=== PATIENT | female | born 1960 | race African-American/Black ===

== ENCOUNTER 2018-04-28 21:34 | Inpatient (IN) | payer SELFPAY ==
[~2018-04-28] VITALS: Ht 170.2 cm; Wt 70.3 kg
[2018-04-28] MEDS ORDERED: IPRATROPIUM BROMIDE (0.02%) 0.5MG/2.5ML NEB HHN STA (22:52)
[2018-04-28] MEDS ORDERED: SODIUM CHLORIDE 0.9% 1,000 ML IV ONE (22:52)
[2018-04-28] MEDS ORDERED: ALBUTEROL (0.083%) 2.5MG/3ML NEB HHN STA (22:52)
[2018-04-28] MEDS ORDERED: GUAIFENESIN/CODEINE 200-20MG/10ML UDC PO ONE (23:00)
[2018-04-28] MEDS ORDERED: GUAIFENESIN/CODEINE 100-10MG/5ML UDC PO NR (23:15)
[2018-04-28 23:38] LABS: BASOPHILS % 0.4 % (0.0-2.0); LYMPHOCYTES % 8.1 % (20.0-50.0); MEAN CORPUSCULAR HEMOGLOBIN 25.8 pg (28.0-32.0); MEAN CORPUSCULAR VOLUME 85.3 fL (81.0-99.0); MEAN PLATELET VOLUME 7.3 fl (7.4-10.4); MONOCYTES % 12.1 % (2.0-8.0); NEUTROPHILS % 79.4 % (40.0-76.0); PLATELET 203 x1000/uL (130-400); RED BLOOD CELL COUNT 2.58 mill/uL (4.2-5.4); RED CELL DISTRIBUTION WIDTH 17.1 % (11.6-14.6)
[2018-04-28 23:48] LABS: HEMOGLOBIN. 6.7 g/dL (12.0-16.0)
[2018-04-28 23:51] LABS: CHLORIDE 101 mEq/L (98-107)
[2018-04-29] MEDS ORDERED: PANTOPRAZOLE SODIUM 40 MG/VIAL IV STA (02:08)
[2018-04-29] MEDS ORDERED: SODIUM CHLORIDE 0.9% 1,000 ML IV ONE (02:08)
[2018-04-29 03:44] LABS: PARTIAL THROMBOPLASTIN TIME 29.1 sec (23.4-31.0); PROTHROMBIN TIME 10.3 sec (9.1-11.1)
[2018-04-29] MEDS ORDERED: ACETAMINOPHEN 325MG TABLET PO ONE (04:45)
[2018-04-29] MEDS ORDERED: DIPHENHYDRAMINE 50MG/ML VIAL IV ONE (04:45)
[2018-04-29] MEDS ORDERED: CLONIDINE 0.1MG TABLET PO PRN (07:00)
[2018-04-29] MEDS ORDERED: MAGNESIUM/ALUMINUM HYDROXIDE/SIMETHICONE 30ML UDC PO PRN (07:00)
[2018-04-29] MEDS ORDERED: HYDRALAZINE 20MG/ML VIAL IV PRN (07:00)
[2018-04-29] MEDS ORDERED: DIPHENHYDRAMINE 50MG/ML VIAL IV PRN (07:00)
[2018-04-29] MEDS ORDERED: IPRATROPIUM/ALBUTEROL 0.5-3(2.5)MG/3ML NEB INH PRN (07:00)
[2018-04-29] MEDS ORDERED: LORAZEPAM 2MG/ML CPJ IV PRN (07:00)
[2018-04-29] MEDS ORDERED: DOCUSATE SODIUM 100MG CAPSULE PO PRN (07:00)
[2018-04-29] MEDS ORDERED: HYDROMORPHONE HCL/PF 2MG/ML CPJ IV PRN (07:00)
[2018-04-29] MEDS ORDERED: ONDANSETRON HCL 4MG/2ML INJ IV PRN (07:00)
[2018-04-29] MEDS ORDERED: ACETAMINOPHEN 325MG TABLET PO PRN (07:00)
[2018-04-29] MEDS ORDERED: HYDROCODONE/ACETAMINOPHEN 10/325MG TABLET PO PRN (07:00)
[2018-04-29 08:12] LABS: BASOPHILS % 0.2 % (0.0-2.0); HEMATOCRIT. 24.1 % (36.0-48.0); HEMOGLOBIN. 7.6 g/dL (12.0-16.0); LYMPHOCYTES % 11.4 % (20.0-50.0); MEAN CORPUSCULAR HEMOGLOBIN 26.8 pg (28.0-32.0); MEAN CORPUSCULAR VOLUME 85.3 fL (81.0-99.0); MEAN PLATELET VOLUME 6.9 fl (7.4-10.4); MONOCYTES % 14.3 % (2.0-8.0); NEUTROPHILS % 74.1 % (40.0-76.0); PLATELET 163 x1000/uL (130-400); RED BLOOD CELL COUNT 2.82 mill/uL (4.2-5.4); RED CELL DISTRIBUTION WIDTH 16.2 % (11.6-14.6)
[2018-04-29] MEDS ORDERED: IOHEXOL-350 100 ML BOTTLE ONE (09:06)
[2018-04-29 10:00] VITALS: BP_SYST 134; BP_SYST 148; BP_DIAS 69; BP_DIAS 78
[2018-04-29] MEDS: GUAIFENESIN 200MG/10ML SUGAR FREE UDC PO PRN ×2 (10:51→20:15)
[2018-04-29] MEDS: DEXT 5%/0.45% NACL 1000ML 1,000 ML IV SCH (13:16)
[2018-04-29] MEDS: SODIUM CHLORIDE 0.9% INJ 3ML FLUSH IVF SCH ×2 (14:00→22:48)
[2018-04-29] MEDS ORDERED: CEFTRIAXONE 1 G PREMIX 50 ML IV SCH (14:15)
[2018-04-29] MEDS ORDERED: CEFTRIAXONE 1,000 MG in DEXTROSE 5% WATER 50 ML IV SCH (16:00)
[2018-04-29] MEDS ORDERED: AZITHROMYCIN 500 MG in DEXT 5% WATER 250 ML IV SCH (16:00)
[2018-04-29] MEDS: GUAIFENESIN 600MG ER TABLET PO SCH ×2 (16:23→20:11)
[2018-04-29 20:00] VITALS: BP 134/76
[2018-04-29] MEDS: BUDESONIDE 0.5MG/2ML NEB HHN SCH (20:58)
[2018-04-29] MEDS: IPRATROPIUM/ALBUTEROL 0.5-3(2.5)MG/3ML NEB HHN SCH (20:58)
[2018-04-29 22:00] VITALS: BP 132/68
[2018-04-30] VITALS (7 sets, daily range): BP systolic 103–133; BP diastolic 57–71
[2018-04-30 00:15] LABS: CREATINE KINASE MB FRACTION 1.6 ng/mL (0.5-3.6)
[2018-04-30] MEDS: SODIUM CHLORIDE 0.9% INJ 3ML FLUSH IVF SCH (05:33)
[2018-04-30] MEDS: DEXT 5%/0.45% NACL 1000ML 1,000 ML IV SCH (05:33)
[2018-04-30 06:42] LABS: BASOPHILS % 0.3 % (0.0-2.0); EOSINOPHILS % 0.1 % (0.0-5.0); HEMATOCRIT. 23.7 % (36.0-48.0); HEMOGLOBIN. 7.7 g/dL (12.0-16.0); LYMPHOCYTES % 23.5 % (20.0-50.0); MEAN CORPUSCULAR VOLUME 83.3 fL (81.0-99.0); MEAN PLATELET VOLUME 7.3 fl (7.4-10.4); MONOCYTES % 14.9 % (2.0-8.0); NEUTROPHILS % 61.2 % (40.0-76.0); PLATELET 168 x1000/uL (130-400); RED BLOOD CELL COUNT 2.84 mill/uL (4.2-5.4); RED CELL DISTRIBUTION WIDTH 16.5 % (11.6-14.6)
[2018-04-30 06:58] LABS: CHLORIDE 108 mEq/L (98-107)
[2018-04-30 07:36] LABS: T4 FREE 1.09 ng/dL (0.76-1.46)
[2018-04-30] MEDS: GUAIFENESIN 600MG ER TABLET PO SCH (08:23)
[2018-04-30] MEDS: GUAIFENESIN 200MG/10ML SUGAR FREE UDC PO PRN (08:23)
[2018-04-30] MEDS: BUDESONIDE 0.5MG/2ML NEB HHN SCH (09:09)
[2018-04-30] MEDS: IPRATROPIUM/ALBUTEROL 0.5-3(2.5)MG/3ML NEB HHN SCH (09:10)
[2018-04-30] MEDS ORDERED: PANTOPRAZOLE SODIUM 40 MG/VIAL IV SCH (11:30)
== END 2018-04-30 12:30 | disposition left against medical advice (07) | DRG 254 ==
LOC: ER 22:19 → 3WST 04-29 03:31 → EDBEDREQ 04-29 03:33 → EDBEDREQSVC 04-29 03:33 → EDBEDREQTM 04-29 03:33 → ENRESERV 04-29 07:19
PROVIDERS: ADMIT Internal Medicine; ATTEND Internal Medicine
PROC: 30233N1 Transfusion of Nonautologous Red Blood Cells into Peripheral Vein, Percutaneous Approach (ICD-10-PCS; principal; 2018-04-29)
DX: K92.1 Melena (principal); J96.00 Acute respiratory failure, unspecified whether with hypoxia or hypercapnia; J44.1 Chronic obstructive pulmonary disease with (acute) exacerbation; D50.9 Iron deficiency anemia, unspecified; E78.5 Hyperlipidemia, unspecified; F10.20 Alcohol dependence, uncomplicated; E86.0 Dehydration; F17.210 Nicotine dependence, cigarettes, uncomplicated; I10 Essential (primary) hypertension; K59.00 Constipation, unspecified; K30 Functional dyspepsia; F41.9 Anxiety disorder, unspecified; Z53.21 Procedure and treatment not carried out due to patient leaving prior to being seen by health care provider
CPT/HCPCS: 36415; 36430; 71045; 71275; 82550; 82553; 82962; 83880; 84439; 84443; 84484; 86850; 86900; 86920; 87804; 93005; 94640; 96361; 96365; 96366; 99291; C9113; J0456; J0696; J1200; J7030; J7040; J7060; J7611; J7620; J7626; P9016; Q9967

== ENCOUNTER 2018-05-27 19:31 | Inpatient (IN) | payer SELFPAY ==
[~2018-05-27] VITALS: Ht 170.2 cm; Wt 61.4 kg
[2018-05-27 21:45] LABS: CHLORIDE 106 mEq/L (98-107)
[2018-05-27 21:48] LABS: BASOPHILS % 0.7 % (0.0-2.0); LYMPHOCYTES % 14.4 % (20.0-50.0); MEAN CORPUSCULAR HEMOGLOBIN 28.9 pg (28.0-32.0); MEAN PLATELET VOLUME 8.2 fl (7.4-10.4); MONOCYTES % 12.5 % (2.0-8.0); NEUTROPHILS % 72.4 % (40.0-76.0); PLATELET 111 x1000/uL (130-400); RED BLOOD CELL COUNT 2.15 mill/uL (4.2-5.4); RED CELL DISTRIBUTION WIDTH 25.4 % (11.6-14.6)
[2018-05-27 21:49] LABS: INR 1.2; PARTIAL THROMBOPLASTIN TIME 26.8 sec (23.4-31.0); PROTHROMBIN TIME 12.2 sec (9.6-11.0)
[2018-05-27 21:50] LABS: HEMATOCRIT. 20.4 % (36.0-48.0); HEMOGLOBIN. 6.2 g/dL (12.0-16.0)
[2018-05-27 22:01] LABS: PLATELET ESTIMATE DECREASED
[2018-05-27] MEDS ORDERED: ONDANSETRON HCL 4MG/2ML INJ IV ONE (22:15)
[2018-05-27] MEDS ORDERED: PANTOPRAZOLE SODIUM 40 MG/VIAL IV ONE (22:30)
[2018-05-27] MEDS ORDERED: MAGNESIUM/ALUMINUM HYDROXIDE/SIMETHICONE 30ML UDC PO PRN (23:00)
[2018-05-27] MEDS ORDERED: CLONIDINE 0.1MG TABLET PO PRN (23:00)
[2018-05-27] MEDS ORDERED: IPRATROPIUM/ALBUTEROL 0.5-3(2.5)MG/3ML NEB INH PRN (23:00)
[2018-05-27] MEDS ORDERED: GUAIFENESIN 200MG/10ML SUGAR FREE UDC PO PRN (23:00)
[2018-05-27] MEDS ORDERED: DOCUSATE SODIUM 100MG CAPSULE PO PRN (23:00)
[2018-05-27] MEDS ORDERED: ONDANSETRON HCL 4MG/2ML INJ IV PRN (23:00)
[2018-05-27] MEDS ORDERED: LORAZEPAM 2MG/ML CPJ IV PRN (23:00)
[2018-05-27] MEDS ORDERED: ACETAMINOPHEN 325MG TABLET PO PRN (23:00)
[2018-05-27] MEDS ORDERED: NITROGLYCERIN 0.4MG TABLET SL SL PRN (23:00)
[2018-05-27] MEDS ORDERED: ZOLPIDEM TARTRATE 5MG TABLET PO PRN (23:15)
[2018-05-28] VITALS (12 sets, daily range): BP systolic 128–161; BP diastolic 47–92
[2018-05-28 00:06] LABS: ETHANOL BLOOD 55 mg/dL
[2018-05-28 00:08] LABS: TOTAL IRON BINDING CAPACITY 374 ug/dL (250-450)
[2018-05-28 01:20] LABS: FOLIC ACID (FOLATE) SERUM 3.7 ng/mL (>5.38)
[2018-05-28] MEDS: DILTIAZEM HCL 60MG TABLET PO SCH ×3 (02:46→18:13)
[2018-05-28] MEDS ORDERED: PANTOPRAZOLE 80 MG in SODIUM CHLORIDE 0.9% 100 ML IV SCH (04:00)
[2018-05-28] MEDS: PANTOPRAZOLE 80 MG in SODIUM CHLORIDE 0.9% 100 ML IV SCH ×2 (04:02→14:00)
[2018-05-28 06:45] LABS: *BENZODIAZEPINES SCREEN URINE NEGATIVE (NEGATIVE); *COCAINE SCREEN URINE NEGATIVE (NEGATIVE)
[2018-05-28 06:46] LABS: *AMPHETAMINES SCREEN URINE NEGATIVE (NEGATIVE); *BARBITURATES SCREEN URINE NEGATIVE (NEGATIVE); CANNABINOID URINE SCREEN NEGATIVE (NEGATIVE); METHADONE URINE SCREEN NEGATIVE (NEGATIVE); OPIATES URINE SCREEN NEGATIVE (NEGATIVE); PHENCYCLIDINE URINE SCREEN NEGATIVE (NEGATIVE)
[2018-05-28 10:25] LABS: HEMATOCRIT. 21.5 % (36.0-48.0); MEAN CORPUSCULAR HEMOGLOBIN 28.2 pg (28.0-32.0); MEAN CORPUSCULAR VOLUME 89.9 fL (81.0-99.0); MEAN PLATELET VOLUME 7.1 fl (7.4-10.4); PLATELET 104 x1000/uL (130-400); RED CELL DISTRIBUTION WIDTH 22.3 % (11.6-14.6)
[2018-05-28 10:36] LABS: HEMOGLOBIN. 6.8 g/dL (12.0-16.0)
[2018-05-28] MEDS: DEXT 5%/0.45% NACL 1000ML 1,000 ML IV SCH (11:01)
[2018-05-28] MEDS ORDERED: BARIUM SULFATE(VOLUMEN) 450 ML ORAL.SUSP ONE (12:31)
[2018-05-28 12:40] LABS: CHLORIDE 108 mEq/L (98-107)
[2018-05-28 13:54] LABS: PLATELET ESTIMATE SLIGHTLY DECREASED
[2018-05-28] MEDS ORDERED: MVI, ADULT NO.1 10 ML, FOLIC ACID 1 MG, THIAMINE HCL 100 MG in SODIUM CHLORIDE 0.9% 1,0... IV ONE ×4 (14:00)
[2018-05-28] MEDS ORDERED: IOHEXOL-350 100 ML BOTTLE ONE (14:29)
[2018-05-28] MEDS ORDERED: BISACODYL 5MG TABLET PO PRN (15:00)
[2018-05-28] MEDS ORDERED: METOCLOPRAMIDE HCL 10MG TABLET PO SCH (15:00)
[2018-05-28] MEDS ORDERED: SORBITOL 70% SOLN 30ML PO SCH ×2 (16:00→20:00)
[2018-05-28] MEDS ORDERED: METOCLOPRAMIDE 10MG/10 ML UDC PO SCH (19:00)
[2018-05-28] MEDS ORDERED: BISACODYL 5MG TABLET PO SCH (19:00)
[2018-05-28 21:47] LABS: HEMATOCRIT 28.1 % (36.0-48.0); HEMOGLOBIN 9.3 g/dL (12.0-16.0)
[2018-05-29] VITALS: BP 148/87
[2018-05-29] MEDS: DILTIAZEM HCL 60MG TABLET PO SCH ×4 (00:25→17:04)
[2018-05-29] MEDS: PANTOPRAZOLE 80 MG in SODIUM CHLORIDE 0.9% 100 ML IV SCH ×2 (00:25→10:00)
[2018-05-29] MEDS: DEXT 5%/0.45% NACL 1000ML 1,000 ML IV SCH ×4 (00:26→17:55)
[2018-05-29 04:00] VITALS: BP 133/66
[2018-05-29 05:57] LABS: INR 1.2; PARTIAL THROMBOPLASTIN TIME 26.1 sec (23.4-31.0)
[2018-05-29 06:04] LABS: CHLORIDE 113 mEq/L (98-107)
[2018-05-29 06:15] LABS: HEMATOCRIT 24.9 % (36.0-48.0); HEMOGLOBIN 8.4 g/dL (12.0-16.0); MEAN CORPUSCULAR VOLUME 88.5 fL (81.0-99.0); PLATELET 108 x1000/uL (130-400); RED BLOOD CELL COUNT 2.82 mill/uL (4.2-5.4); RED CELL DISTRIBUTION WIDTH 20.3 % (11.6-14.6)
[2018-05-29 08:00] VITALS: BP 124/67
[2018-05-29] MEDS: FOLIC ACID 1MG TABLET PO SCH (08:32)
[2018-05-29] MEDS ORDERED: FENTANYL CITRATE/PF 50MCG/ML 2ML VIAL ONE ×2 (11:24→12:24)
[2018-05-29] MEDS ORDERED: MIDAZOLAM HCL 5 MG/5 ML VIAL ONE (11:24)
[2018-05-29] MEDS ORDERED: MIDAZOLAM HCL 5 MG/5 ML VIAL IV ONE (11:46)
[2018-05-29] MEDS ORDERED: FENTANYL CITRATE/PF 50MCG/ML 2ML VIAL IV ONE (11:48)
[2018-05-29] MEDS ORDERED: DIPHENHYDRAMINE 50MG/ML VIAL ONE ×3 (11:53→12:21)
[2018-05-29] MEDS ORDERED: DIPHENHYDRAMINE 50MG/ML VIAL IV ONE (11:54)
[2018-05-29 13:24] VITALS: BP 127/64
[2018-05-29] MEDS: PANTOPRAZOLE SODIUM 40 MG/VIAL IV SCH (13:41)
[2018-05-29 16:00] VITALS: BP 118/65
[2018-05-29] MEDS: SUCRALFATE 1 G/10 ML UDC PO SCH ×2 (17:04→21:22)
[2018-05-29 20:00] VITALS: BP 121/68
[2018-05-29 20:09] LABS: BASOPHILS % 0.2 % (0.0-2.0); EOSINOPHILS % 0.4 % (0.0-5.0); HEMATOCRIT. 27.8 % (36.0-48.0); HEMOGLOBIN. 9.4 g/dL (12.0-16.0); LYMPHOCYTES % 21.1 % (20.0-50.0); MEAN CORPUSCULAR HEMOGLOBIN 30.1 pg (28.0-32.0); MEAN CORPUSCULAR VOLUME 88.9 fL (81.0-99.0); MEAN PLATELET VOLUME 7.4 fl (7.4-10.4); MONOCYTES % 12.6 % (2.0-8.0); NEUTROPHILS % 65.7 % (40.0-76.0); PLATELET 125 x1000/uL (130-400); RED BLOOD CELL COUNT 3.13 mill/uL (4.2-5.4); RED CELL DISTRIBUTION WIDTH 20.8 % (11.6-14.6)
[2018-05-30] VITALS: BP 116/62
[2018-05-30] MEDS: DILTIAZEM HCL 60MG TABLET PO SCH ×3 (00:30→12:38)
[2018-05-30 03:58] VITALS: BP 122/66
[2018-05-30] MEDS: DEXT 5%/0.45% NACL 1000ML 1,000 ML IV SCH (05:05)
[2018-05-30 06:58] LABS: BASOPHILS % 0.2 % (0.0-2.0); EOSINOPHILS % 0.6 % (0.0-5.0); HEMOGLOBIN. 7.8 g/dL (12.0-16.0); LYMPHOCYTES % 23.7 % (20.0-50.0); MEAN CORPUSCULAR VOLUME 88.8 fL (81.0-99.0); MEAN PLATELET VOLUME 7.6 fl (7.4-10.4); MONOCYTES % 11.9 % (2.0-8.0); NEUTROPHILS % 63.6 % (40.0-76.0); PLATELET 113 x1000/uL (130-400); RED BLOOD CELL COUNT 2.59 mill/uL (4.2-5.4); RED CELL DISTRIBUTION WIDTH 20.6 % (11.6-14.6)
[2018-05-30 07:46] LABS: CHLORIDE 111 mEq/L (98-107)
[2018-05-30 08:00] VITALS: BP 136/61
[2018-05-30] MEDS: SUCRALFATE 1 G/10 ML UDC PO SCH ×2 (09:31→12:38)
[2018-05-30] MEDS: PANTOPRAZOLE SODIUM 40 MG/VIAL IV SCH (09:32)
[2018-05-30] MEDS: FOLIC ACID 1MG TABLET PO SCH (09:32)
[2018-05-30] MEDS ORDERED: POTASSIUM CHLORIDE 20MEQ TABLET SR PO SCH (11:00)
[2018-05-30 11:36] VITALS: BP 130/64
[2018-05-30 12:07] VITALS: BP 133/67
== END 2018-05-30 14:15 | disposition home or self-care (01) | DRG 241 ==
LOC: ER 19:31 → 6WST 22:39 → ENRESERV 23:23
PROVIDERS: ADMIT Internal Medicine; ATTEND Internal Medicine
PROC: 30233N1 Transfusion of Nonautologous Red Blood Cells into Peripheral Vein, Percutaneous Approach (ICD-10-PCS; 2018-05-28)
PROC: 0DJD8ZZ Inspection of Lower Intestinal Tract, Via Natural or Artificial Opening Endoscopic (ICD-10-PCS; 2018-05-29)
PROC: 0DB98ZX Excision of Duodenum, Via Natural or Artificial Opening Endoscopic, Diagnostic (ICD-10-PCS; principal; 2018-05-30)
PROC: 0DB68ZX Excision of Stomach, Via Natural or Artificial Opening Endoscopic, Diagnostic (ICD-10-PCS; 2018-05-30)
DX: K29.71 Gastritis, unspecified, with bleeding (principal); E46 Unspecified protein-calorie malnutrition; D52.9 Folate deficiency anemia, unspecified; D62 Acute posthemorrhagic anemia; E83.51 Hypocalcemia; I78.1 Nevus, non-neoplastic; K20.9 Esophagitis, unspecified; E87.6 Hypokalemia; F10.10 Alcohol abuse, uncomplicated; I10 Essential (primary) hypertension; J44.9 Chronic obstructive pulmonary disease, unspecified; K59.00 Constipation, unspecified; Z82.49 Family history of ischemic heart disease and other diseases of the circulatory system; Z87.891 Personal history of nicotine dependence; Z91.14 Patient's other noncompliance with medication regimen; Z68.21 Body mass index [BMI] 21.0-21.9, adult
CPT/HCPCS: 36415; 71045; 74177; 80048; 80305; 80320; 82607; 82746; 83540; 83550; 83880; 84484; 85014; 85018; 85027; 86850; 86900; 86920; 88305; 88313; 93005; 93970; 96374; 99152; 99153; 99285; C9113; J1200; J2250; J2405; J3010; J3411; J3490; J7030; J7040; J7050; J8597; P9016; Q9967; G0480; G0500